=== PATIENT | female | born 1955 | race Caucasian/White ===

== ENCOUNTER 2017-09-06 10:16 | Day surgery (SDC) | payer BC, MEDICARE ==
--- NOTE | 2017-09-06 07:27 | History and Physical Report ---
DATE: 09/05/2017. CHIEF COMPLAINT AND HISTORY OF CHIEF COMPLAINT: This is a patient with a history of an intractable lumbar radiculopathy. She had a spinal cord stimulator trial conducted on 07/25/2017 with 75 to 85 percent pain control. Due to the failure of all therapy and the success of the trial, she presents today for implantation of a permanent system. PAST MEDICAL HISTORY: Hypothyroidism. PAST SURGICAL HISTORY: None listed. MEDICATIONS ON ADMISSION: To be provided. ALLERGIES: Morphine, penicillin, sulfa. SOCIAL HISTORY: Noncontributory. FAMILY HISTORY: Hypertension, thyroid disease, cancer. REVIEW OF SYSTEMS: The patient is appropriate and in no acute distress. The remainder of the systems review shows glasses, thyroid disease, degenerative arthritis, depression with posttraumatic stress disorder. PHYSICAL EXAMINATION: General: Height and weight are unknown. Vital Signs: Unavailable. HEENT: Within normal limits. Lungs: Clear. Heart: Regular rate and rhythm. Abdomen: Nontender. Musculoskeletal: Examination of the musculoskeletal system shows diffuse tenderness throughout the lumbar spine. Range of motion produces pain throughout the low back and going into the lower extremities, somewhat more left than right. Sensory field evaluation shows dermatomal changes and reductions across the front and back surfaces, left greater than right. Motor functionality shows some weakness to the left. Ambulation: No assistive device utilized. Neurologic: Cranial nerves are intact. IMPRESSION: LUMBAR RADICULOPATHY, ICD-10 CODE M54.16 AND M54.17. PLAN: The patient is here for implantation of a permanent spinal cord stimulator due to the failure of therapy and the success of the trial. The potential risks, side effects, and complications have been carefully reviewed and discussed. The procedure will be considered outpatient, although and overnight stay will be evaluated. JOB NUMBER: [id number] cc: Jigna Ambrocio
[~2017-09-06 10:16] MED LIST: ACETAMINOPHEN 1,000 MG/100 ML BTL IV ONE; CLINDAMYCIN 600MG/50ML PREMIX 600 MG/50 ML BAG IVPB ONE; FAMOTIDINE 20MG TABLET PO ONE; MECLIZINE 25 MG TABLET PO ONE; METOCLOPRAMIDE 10 MG TABLET PO ONE
[2017-09-06] MEDS ORDERED: FLUMAZENIL 1MG/10ML VIAL IV ONE (10:17)
[2017-09-06] MEDS ORDERED: PROPOFOL 10 MG/ML VIAL IV ONE (10:17)
[2017-09-06] MEDS ORDERED: MIDAZOLAM HCL 2MG/2ML VIAL IV ONE (10:17)
[2017-09-06] MEDS ORDERED: HYDROMORPHONE HCL 2 MG/ML VIAL IV ONE (10:17)
[2017-09-06] MEDS ORDERED: LIDOCAINE 2% MDV (20MG/ML) 20ML VIAL IV ONE (10:17)
[2017-09-06] MEDS ORDERED: LIDOCAINE 1% W/EPI 1:200,000 MPF 30ML SQ ONE (10:17)
[2017-09-06] MEDS ORDERED: FENTANYL PF 100MCG/2ML VIAL IV ONE (10:17)
[2017-09-06] MEDS ORDERED: CLINDAMYCIN (PEDIATRIC DOSING) 150 MG/ML VIAL IVPB ONE (10:17)
[2017-09-06] MEDS ORDERED: BUPIVACAINE 0.5% W/EPI MPF 30 ML VIAL IVP ONE (10:17)
[2017-09-06] MEDS ORDERED: METOCLOPRAMIDE HCL 10 MG/2 ML VIAL IVP PRN (14:25)
[2017-09-06] MEDS ORDERED: METOCLOPRAMIDE 10 MG TABLET PO PRN (14:25)
[2017-09-06] MEDS ORDERED: SENNOSIDES/DOCUSATE SODIUM UD CAPSULE PO PRN ×2 (14:25)
[2017-09-06] MEDS ORDERED: HYDROCODONE/APAP 7.5/325MG TABLET PO PRN ×2 (14:25)
[2017-09-06] MEDS ORDERED: DIPHENHYDRAMINE HCL 25 MG CAPSULE PO PRN ×2 (14:25)
[2017-09-06] MEDS ORDERED: DIPHENHYDRAMINE HCL 50 MG/ML VIAL IVP PRN ×2 (14:25)
[2017-09-06] MEDS ORDERED: OXYCODONE/APAP 10MG-325MG TABLET PO PRN ×2 (14:25)
[2017-09-06] MEDS ORDERED: TEMAZEPAM 15 MG CAPSULE PO PRN ×2 (14:25)
[2017-09-06] MEDS ORDERED: ACETAMINOPHEN 325 MG TAB PO PRN ×2 (14:25)
[2017-09-06] MEDS ORDERED: HYDROMORPHONE HCL 2 MG/ML VIAL IM PRN ×2 (14:25)
[2017-09-06] MEDS ORDERED: AL HYDROX/MAG HYDROX 30ML UD PO PRN (14:25)
[2017-09-06] MEDS ORDERED: CLINDAMYCIN 600MG/50ML PREMIX 600 MG/50 ML BAG IVPB SCH (20:30)
[2017-09-06] MEDS ORDERED: TRAZODONE 50 MG TABLET PO SCH (22:00)
[2017-09-06] MEDS ORDERED: BUSPIRONE 5 MG TABLET PO SCH (22:00)
[2017-09-07] MEDS ORDERED: LEVOTHYROXINE SODIUM 25 MCG TABLET PO SCH (07:00)
[2017-09-07] MEDS ORDERED: TRAZODONE 50 MG TABLET PO SCH (10:00)
[2017-09-07] MEDS ORDERED: MELOXICAM 7.5 MG TABLET PO SCH (10:00)
--- NOTE | 2017-09-07 20:35 | Operative Note - Ferro ---
DATE OF SURGERY: 09/06/17 PREOPERATIVE DIAGNOSES: LUMBAR RADICULOPATHY ICD-10 CODE = M54.16 AND M54.17. SURGERY: 1. FLUOROSCOPIC-GUIDED EPIDURAL ACCESS RIGHT T12-L1, PLACEMENT OF SPINAL CORD STIMULATOR LEAD 1, A [employer] IN[employer]INION 16 WITH 6 ELECTRODES POSITIONED RIGHT T7. 2. FLUOROSCOPIC-GUIDED EPIDURAL ACCESS RIGHT T11-12, PLACEMENT OF SPINAL CORD STIMULATOR LEAD 2, A [employer] 16 WITH 6 ELECTRODES POSITIONED LEFT T7. 3. COMPLEX PROGRAMMING OF LEAD 1, OVER 20 MINUTES FOLLOWED BY COMPLEX PROGRAMMING OF LEAD 2, OVER 20 MINUTES. 4. INCISION, SUBCUTANEOUS DISSECTION AND ANCHORING OF LEAD 1 AND LEAD 2 TO SUPRASPINOUS FASCIA USING A [employer] SCIENTIFIC LOCKING ANCHOR. 5. INCISION, SUBCUTANEOUS DISSECTION AND CREATION OF SUBCUTANEOUS POUCH AT RIGHT POSTERIOR GLUTEAL MARGIN FOR PLACEMENT OF GENERATOR IDENTIFIED A [employer] PROGRAMMABLE, RECHARGEABLE. 6. TUNNELING BETWEEN POUCHES. PLACEMENT OF EXTERNAL PORTION OF LEAD 1 AND LEAD 2 INTO GENERATOR POUCH, EACH LEAD INTERFACED TO THE GENERATOR. 7. PLACEMENT OF GENERATOR INTO POUCH SECURING TO POSTERIOR FASCIA WITH NONABSORBABLE SUTURE. PLACEMENT OF LEADS INTO POUCH AND CLOSURE OF BOTH INCISIONS WITH VICRYL FOR FASCIA, RUNNING SUBCUTICULAR VICRYL FOR SKIN. DERMABOND CLOSURE. 8. COMPLEX RECOVERY ROOM PROGRAMMING INTERNAL GENERATOR HOME USE, TWO STIMULATORS, 20 MINUTES. SURGEON: SARAH AMAYA D.O. ANESTHESIA: LOCAL SEDATION. ANESTHESIA PROVIDER: COLLINS VILLALOBOS CRNA. INDICATIONS: This patient presents with a history of intractable lumbar radiculopathy. Due to the failure of all therapies and the success of a stimulator trial, she is here for permanent implantation of a system. SURGERY: Intravenous line, vital sign monitoring, IV sedation, prepped and draped sterile technique. Under imaging from the right of midline, the skin at T11-12 and 12-1 infiltrated and then using two separate standard epidural needles with [id number] into the space. At 12-1, spinal cord stimulator lead 1, a [employer] Infinion 16 with 6 electrodes positioned right at T7. With the epidural access at 11-12, spinal cord stimulator lead 2, a [employer] Infinion 16 with 6 electrodes, positioned left of midline at T7. Complex programming of lead 1 over 20 minutes followed by complex programming of lead 2 over 20 minutes resulting in a complete pattern of stimulation across the back and into the legs. The patient indicating we were in all of the areas of the pain. She was given the option to implant, continue to program, or remove ; she opted to implant. Questions were repeated with the same response. The skin above and below both needles was infiltrated, incision made, and subcutaneous dissection was conducted to the supraspinous fascia. Each of the leads was then anchored to the supraspinous fascia with a [employer] locking anchor. The skin right of the midline in the posterior superior gluteal margin, a site picked by the patient for the generator, skin infiltrated, incision made, and subcutaneous dissection was conducted to form a pouch of suitable size and depth for the generator. Antibiotic irrigation and Bovie for hemostasis. A tunneling tool was used to carry the leads into the generator pouch and then each lead was interfaced with the generator. The generator was placed into the pouch and secured with a nonabsorbable suture. The leads were placed into their own pouch and then both incisions were closed with Vicryl for fascia and running subcuticular Vicryl for skin. A Dermabond closure was then used to approximate the edges of the wounds. She was transported to the Recovery Room stable, no side-effects from the procedure or the sedation. When fully awake and alert, complex programming was then performed over 20 minutes reestablishing stimulation and pain control to all of the appropriate areas. She was instructed on the use of the system, provided with information, and then prepared for discharge. DISCHARGE INSTRUCTIONS: 1. The sites are to remain clean and dry. No showering or bathing in any way that would disrupt dressings. 2. Standard medications resumed, including Levaquin, the antibiotic 500 mg once a day for 14 days. 3. The office will contact the patient in 12 to 24 hours to set up an appointment in 7 to 10 days to evaluate the sites. Until then, she is to keep her activities low. The Dermabond will allow showing but she should not sit in water until she is evaluated in the office. All other instructions provided, numbers to contact if problems given. She will be discharged in the morning. cc: Margot Marie JOB NUMBER: [id number] MTDD
--- NOTE | 2017-09-08 08:31 | RADIOLOGY REPORT ---
EXAM: PORTABLE VIEW OF THE LUMBAR SPINE HISTORY: POSTOP. TECHNIQUE: A single portable AP view of the lower thoracic and lumbar spines was obtained. Comparison: None. FINDINGS: The proximal tips of the two stimulating wires project over T7. Osteopenia. Correlate with intraoperative findings. IMPRESSION: STIMULATING WIRES PROJECTING OVER T7. JOB NUMBER: [id number] MTDD
== END 2017-09-06 16:02 | disposition home or self-care (01) ==
LOC: SUR 10:16 → MEDSURG 14:17 → SUR 16:02
PROVIDERS: ATTEND Pain Medicine Interventional Pain Medicine
DX: M54.16 Radiculopathy, lumbar region (principal); M54.17 Radiculopathy, lumbosacral region; F43.10 Post-traumatic stress disorder, unspecified
CPT/HCPCS: 72020; 95972; C1820; C1883